=== PATIENT | female | born 1945 | race Caucasian/White ===

== ENCOUNTER 2021-12-12 06:53 | Day surgery (SDC) | payer MEDICARE, OTHER ==
[~2021-12-12] VITALS: Ht 170.2 cm; Wt 110.6 kg
[2021-12-12] MEDS ORDERED: TRULICITY3 MG/0.5 M SQ (07:16)
[2021-12-12] MEDS ORDERED: ATOR20 (07:16)
[2021-12-12] MEDS ORDERED: METF500 PO (07:17)
[2021-12-12] MEDS ORDERED: CLEM1.34 (07:18)
[2021-12-12] MEDS ORDERED: FLONASE ALLERG9.9 ML (07:18)
--- NOTE | 2021-12-12 08:57 | NUR ---
12/12/21 0857 Dhruv Andrews 30ML OF EPI 1MG/ML USE4D ON FIELD TO SOAK PLEDGETTS. .05ML OF EPI 1MG/ML OF EPI ADDED TO 10ML OF LIDOCAINE 1% TO CREATE A SOLUTION OF LIDOCAINE 1% WITH EPI 1:200,000.
== END 2021-12-12 10:34 | disposition home or self-care (01) ==
LOC: ORSCSDS 06:53
PROVIDERS: Otolaryngology
PROC: 09SL0ZZ Reposition Nasal Turbinate, Open Approach (ICD-10-PCS; principal; 2021-12-12 08:15)
PROC: 09BM0ZZ Excision of Nasal Septum, Open Approach (ICD-10-PCS; principal; 2021-12-12 08:15)
DX: J34.2 Deviated nasal septum (principal); J34.3 Hypertrophy of nasal turbinates; I10 Essential (primary) hypertension; E11.9 Type 2 diabetes mellitus without complications; Z79.84 Long term (current) use of oral hypoglycemic drugs; Z79.899 Other long term (current) drug therapy; E66.9 Obesity, unspecified; Z68.38 Body mass index [BMI] 38.0-38.9, adult
CPT/HCPCS: 82947; A9270; J0171; J1100; J2001; J2370; J2405; J2704; J3010; J7120

== ENCOUNTER 2022-08-29 12:45 | Day surgery (SDC) | payer MEDICARE, OTHER ==
[~2022-08-29] VITALS: Ht 170.2 cm; Wt 109.5 kg
[~2022-08-29 12:45] MED LIST: ATOR20; CLEM1.34; FLONASE ALLERG9.9 ML; METF500 PO; TRULICITY3 MG/0.5 M SQ
--- NOTE | 2022-08-29 13:49 | NUR ---
GENERAL ANESTHESIA CAUSED NAUSEA
--- NOTE | 2022-08-29 14:02 | NUR ---
08/29/22 1402 Clementina Stanford PT BP AND HEART RATE IRREGULAR. PER AMANDO ROA 12 LEAD EKG
[2022-08-29] MEDS ORDERED: ATORVASTATIN CA20 MG PO (14:53)
[2022-08-29] MEDS ORDERED: METFORMIN HCL500 M3 PO (14:53)
[2022-08-29] MEDS ORDERED: DILT60 PO (17:00)
[2022-08-29] MEDS ORDERED: ELIQUIS5 M2 PO (17:00)
== END 2022-08-29 14:20 | disposition home or self-care (01) ==
LOC: ORSCSDS 12:45
DX: H25.11 Age-related nuclear cataract, right eye (principal); Z53.9 Procedure and treatment not carried out, unspecified reason
CPT/HCPCS: 93005; 93010; J2250; J3301; J7040

== ENCOUNTER → 2022-11-06 | Outpatient (CLI) | payer MEDICARE, OTHER ==
[~2022-11-06] MED LIST changes: +ATORVASTATIN CA20 MG PO; +DILT60 PO; +ELIQUIS5 M2 PO; +METFORMIN HCL500 M3 PO
== END | disposition home or self-care (01) ==
LOC: LAB SHORT 12:37 → LAB 12:37
DX: L71.8 Other rosacea (principal)
CPT/HCPCS: 87070; 87205

== ENCOUNTER 2022-11-29 06:32 | Day surgery (SDC) | payer MEDICARE, OTHER ==
[~2022-11-29] VITALS: Ht 167.6 cm; Wt 107.0 kg
[~2022-11-29 06:32] MED LIST changes: +METO25ER PO; +TRULICITY3 MG/0.5 M SC
[2022-11-29 07:04] VITALS: BP 133/79
[2022-11-29 07:55] VITALS: BP 135/81
[2022-11-29 08:00] VITALS: BP 116/78
--- NOTE | 2022-11-29 08:12 | NUR ---
PT AND VERBALIZED UNDERSTANDING OF WRITTEN AND VERBAL D/C INST. SR 66BPM AT THIS TIME. IV REMOVED.
== END 2022-11-29 22:39 | disposition home or self-care (01) ==
LOC: MHTC 06:32
DX: I48.0 Paroxysmal atrial fibrillation (principal); I10 Essential (primary) hypertension; E78.5 Hyperlipidemia, unspecified; E66.9 Obesity, unspecified; I87.2 Venous insufficiency (chronic) (peripheral); E11.9 Type 2 diabetes mellitus without complications; G43.909 Migraine, unspecified, not intractable, without status migrainosus; H25.813 Combined forms of age-related cataract, bilateral; Z88.5 Allergy status to narcotic agent
CPT/HCPCS: 92960; 93005; 93010; J2250; J3010; J7030